=== PATIENT | female | born 2000 | race Caucasian/White ===

== ENCOUNTER 2022-01-20 08:18 | Inpatient (IN) ==
[2022-01-20] MEDS: LACTATED RINGER'S 1,000 ML IV PRN ×4 (08:50→20:21)
[2022-01-20] MEDS ORDERED: VANCOMYCIN HCL 1,000 MG in SODIUM CHLORIDE 0.9% 250 ML IV STA (08:56)
[2022-01-20] MEDS ORDERED: OXYTOCIN 30 UNITS/500 ML BAG IV PRN (08:56)
--- NOTE | 2022-01-20 09:09 | History & Physical Report ---
Date of Service January 20, 2022 Assessment & Plan (1) Normal labor: Plan: Admit, monitoring, GBS positive and PCN anaphylaxis with Erythromycin resistant GBS so will administer Vanco, start now due to FSE already placed. (2) Non-reassuring cardiotocographic tracing: Plan: Close monitoring; has resolved at this time. History of Present Illness Chief Complaint: Patient presents to L&D with c/o painful contractions. 21yo @ 39w6d. Immediately upon arrival to L&D was found to have FHT with decel to 60. Rapidly assessed by nearest MD (Sriram) and found to be 4cm dilated, FSE placed with concurrent pinpoint rupture of membranes, and [place] externally continued. IV access rapidly established and LR bolus ordered. Primary Care Provider: Magaly Torres Allergies Allergy/AdvReac Type Severity Reaction Status Date / Time amoxicillin Allergy Severe Anaphylaxis Verified 01/18/22 01:09 Penicillins Allergy Severe Anaphylaxis Verified 01/18/22 01:09 Home Medications Medication Instructions Recorded Confirmed Type ferrous sulfate 325 mg (65 mg 325 mg PO DAILY 01/18/22 01/20/22 History iron) tablet (Iron (ferrous sulfate)) Past Med/Surg History Medical History Anxiety Bipolar 1 disorder Depression Exercise-induced asthma PTSD (post-traumatic stress disorder) Varicella vaccine Surgical History No significant past surgical history Family History Grandmother (Paternal) Diabetes Myocardial infarction Grandfather (Maternal) Stroke Grandfather (Paternal) Myocardial infarction Aunt Ovarian cancer Cervical cancer Stomach cancer Mother Endometriosis H/O: hysterectomy Other Uterine cancer Denies family history of Breast cancer Social History Smoking Status: Current every day smoker Cigarettes Per Day: 6; Hx Alcohol Use: No Hx Substance Use: No Preferred Language: Kosovan Communication Ability: Effective Cigarette Tipper Required: No Beliefs That Will Affect Care: None marital status: Single marital status details: KAITLYNN Gabino Tonny (23) [phone] Current Living Situation: Family and Significant Other Current Living Situation Comment: lives with mother currently. 4 dogs. current occupational status: unemployed Feels Safe at Home: Yes Assistive Devices: None Review of Systems Review of Systems: All systems reviewed & are unremarkable except as noted in HPI & below Physical Exam Constitutional: WD/WN, vitals as above + in distress Eyes: PERRL, conjunctivae normal, anicteric sclerae ENMT: external ear and nose normal, oropharynx normal Neck: supple Respiratory: normal respiratory effort and able to speak in complete sentences; no respiratory distress Cardiovascular: Rate/Rhythm: regular rate and regular rhythm Extremities: + pedal edema Gastrointestinal (Abdomen): Gravid / AGA, nontender Musculoskeletal: no cyanosis or clubbing, extremities motor strength 5/5 Skin: no rashes, warm and dry Psychiatric: A+Ox3, euthymic affect Genitourinary: Speculum/Bimanual Exam: no vaginal lesions, no vaginal bleeding and uterus nontender OB Exam Abdomen: + vertex, + estimated weight (7) and + regular contractions (Q3) Manual OB Exam: + cervical dilation, + cervical effacement, + station and + amniotic fluid (No leaking evident) OB Exam Monitor Tracing: + external FHT monitor used, + external uterine monitor used and + category I Exam by Dr. Bhatia reported to this MD at the bedside, 4cm. Patient's membranes were intact but FSE placed to allow tracing accurately due to suspected 60bpm deceleration immediately upon arrival. Decel confirmed and FHT promptly recovered to a 150 baseline, mod anel, no accels no decels. [place] poorly traced, possible Q1-2m LAW vs ctx. Not much strip accrued yet as patient newly admitted. Lymphatic: no cervical or axillary lymphadenopathy Results & Data Results & Data ([facility]) Vital Signs (Past 12 Hours) Vital Signs Pulse Pulse Ox 01/20/22 09:01 127 H 100 PG Care Time/CCT Total # of Minutes Spent Total Time Spent with Patient: Total time spent is greater than 50% in coordination of care (as documented) at patient's floor/unit and/or counseling patient: Coding Level of Care Code None Diagnoses Normal labor O80; Z37.9 Non-reassuring cardiotocographic tracing O36.8390
[2022-01-20 09:25] LABS: Hematocrit (blood only) 31.4 % (34.1-44.9); Hemoglobin 10.6 g/dl (12.0-16.0); Mean Corpuscular Hemoglobin 31.5 pg (25.0-34.0); Mean Corpuscular Hgb Conc 33.8 g/dL (32.0-36.0); Mean Corpuscular Volume 93.2 fL (80.0-100.0); Mean Platelet Volume 9.8 fL (9.4-12.3); Platelet Count 357 K/uL (130-400); RDW Coefficient of Variation 12.7 % (11.5-14.5); RDW Standard Deviation 43.3 fL (36.4-46.3); Red Blood Count 3.37 M/uL (3.93-5.22); White Blood Count 16.05 K/ul (4.8-10.8)
[2022-01-20] MEDS ORDERED: VANCOMYCIN HCL 1,750 MG in SODIUM CHLORIDE 0.9% 500 ML IV STA (09:27)
[2022-01-20] MEDS ORDERED: ePHEDrine sulfate 50 MG/ML AMP ONE (11:04)
[2022-01-20] MEDS ORDERED: BUPIVACAINE 0.25% 30 ML VIAL ONE (11:05)
[2022-01-20] MEDS ORDERED: LIDOCAINE 2%/EPINEPHRINE 1:200,000 20 ML SDV ONE (11:05)
[2022-01-20] MEDS ORDERED: fentaNYL citrate 100 MCG/2 ML VIAL ONE (11:05)
[2022-01-20] MEDS ORDERED: SODIUM CHLORIDE 0.9% INJ 10 ML VIAL ONE (11:05)
[2022-01-20] MEDS ORDERED: fentaNYL 2MCG/ML ROPIVACAINE 1.25MG/ML 100 ML BAG EPI ONE (11:06)
[2022-01-20] MEDS ORDERED: fentaNYL 2MCG/ML ROPIVACAINE 1.25MG/ML 100 ML BAG EPI PRN (11:18)
[2022-01-20] MEDS ORDERED: NALOXONE HCL 0.4 MG/1 ML VIAL/CARP IV PRN (11:18)
[2022-01-20] MEDS ORDERED: diphenhydrAMINE 50 MG/ML VIAL IV PRN (11:18)
[2022-01-20] MEDS ORDERED: NALBUPHINE HCL INJ 10 MG/ML AMP IV PRN (11:18)
[2022-01-20] MEDS ORDERED: NALOXONE HCL 1 MG in SODIUM CHLORIDE 0.9% 1000ML 1,000 ML IV PRN (11:18)
[2022-01-20] MEDS ORDERED: ePHEDrine sulfate 50 MG/ML AMP IV PRN (11:18)
--- NOTE | 2022-01-20 11:24 | Anesthesiology Consultation ---
Date of Service January 20, 2022 Assessment & Plan (1) Encounter for pre-operative examination: Chart Review Chart Review: Acceptable Risk for Labor Epidural Consults Requested none ASA ASA2 Proposed Anesthesia Anesthesia Type: Labor Epidural Risk / Benefits Reviewed With: PT / POA / Parent / Guardian, Accepts Plan and Informed Consent Obtained History Height/Weight Height: 5 ft 6.5 in Weight: 92.079 kg Allergies Allergy/AdvReac Type Severity Reaction Status Date / Time amoxicillin Allergy Severe Anaphylaxis Verified 01/18/22 01:09 Penicillins Allergy Severe Anaphylaxis Verified 01/18/22 01:09 Medications Home Medications Medication Instructions Recorded Confirmed Last Taken ferrous sulfate 325 mg (65 mg 325 mg PO DAILY 01/18/22 01/20/22 01/06/22 iron) tablet (Iron (ferrous sulfate)) Active Medications Generic Name Dose Route Start Last Admin Trade Name Freq PRN Reason Stop Dose Admin Lactated Ringer's 1,000 mls @ 125 mls/hr 01/20/22 08:56 01/20/22 09:20 Lr IV 01/22/22 08:55 125 mls/hr .Q8H PRN Infusion L&D Protocol Protocol Vancomycin HCl 1,750 mg/ 535 mls @ 200 mls/hr 01/20/22 09:27 01/20/22 10:11 Sodium Chloride IV 01/20/22 12:07 200 mls/hr NOW STA Administration Past Medical History Medical History Anxiety Bipolar 1 disorder Depression Exercise-induced asthma PTSD (post-traumatic stress disorder) Varicella vaccine Exercise / Class Metabolic Activity II 4-5 Yardwork/Stairs/Walk up hill Past Family History Family History Grandmother (Paternal) Diabetes Myocardial infarction Grandfather (Maternal) Stroke Grandfather (Paternal) Myocardial infarction Aunt Ovarian cancer Cervical cancer Stomach cancer Mother Endometriosis H/O: hysterectomy Other Uterine cancer Denies family history of Breast cancer Past Surgical History Surgical History No significant past surgical history Past Anesthesia History No Hx of Anesthesia Complications and No Family Hx of Anesthesia Complications History of PONV No Hx of PONV and No Hx of Motion Sickness Social History Smoking Status: Current every day smoker tobacco type: cigarettes Smoking cigarettes per day: 6 Do You Dip or Chew Tobacco: No Hx Alcohol Use: No Hx Substance Use: No substance use type: does not use Physical Exam Vital Signs Last Vital Signs Pulse 90 01/20/22 11:20 BP 113/62 01/20/22 11:14 Pulse Ox 96 01/20/22 11:20 ENMT Mouth: no dentition abnormality Thyromental Distance: > or= 3.5 Finger Breadths Mallampati Class: II Neck normal visual inspection Respiratory normal respiratory effort Auscultation: lungs clear to auscultation bilaterally Cardiovascular Rate/Rhythm: regular rate and regular rhythm Testing Laboratory Results 01/20/22 09:09
[2022-01-20] MEDS: ONDANSETRON INJ 2 MG/ML 2 ML VIAL IV PRN ×2 (12:34→22:07)
[2022-01-20] MEDS ORDERED: VANCOMYCIN HCL 1,000 MG in SODIUM CHLORIDE 0.9% 250 ML IV PRN (22:00)
[2022-01-21] MEDS ORDERED: LIDOCAINE 2%/EPINEPHRINE 1:200,000 20 ML SDV ONE ×3 (00:19)
[2022-01-21] MEDS ORDERED: GENTAMICIN CONSULT ACTIVE PRN (00:19)
[2022-01-21] MEDS ORDERED: LACTATED RINGER'S 1,000 ML IV SCH (00:30)
--- NOTE | 2022-01-21 00:35 | Labor Progress Brief Note ---
Date of Service January 21, 2022 Subjective Comfortable with epidural, though feeling pressure and urge with some c ontractions now. Assessment & Plan Admission and Anticipated Discharge Date Admission Date: January 20, 2022 Physical Exam Genitourinary: FHT all day have been alternating between intervals of Cat 1, and more often being Cat 2, with normal baseline, mod anel, accels, and variables with contractions. At times the variables have been deep, to as low as 50, but always spontaneously recover to a normal baseline with good variability between contractions. This has been discussed with patient, FOB and nursing staff through the day. At no point has the tracing been without reassuring variability, and labor has progressed spontaneously, so has been allowed to continue with close monitoring and without augmentation. Currently: 130 mod anel +acc +variable decel with each contraction, Q3min, barbara ranging from 50-100bpm. Cervix anterior lip/100/+1 Fluid is clear. With contraction, patient is asked to test push. She brings the head down, and I'm able to reduce the anterior lip. Once reduced, however, it is possible to palpate further along the head and discern that she is presenting in LOT, with an ear palpable anteriorly. Between pushes the cervical lip falls back down. With the second test push, a large loop of cord is palpable presenting over the ear; the examiner's hand prevents it coming forward any further. The patient is instructed to stop pushing and the cord is easily replaced inside the uterus, superior to the ear. A discussion is held at the bedside. I feel it's likely this occult cord is the reason for her deep variable decels, and that attempting a second stage of labor will only result in complete cord prolapse with low chance of a safe and successful vaginal delivery. The patient accepted this and said she is comfortable with the recommendation to proceed to section. We will move to the OR as quickly as is possible, with the understanding that concurrent events on labor and delivery are also playing a role in our timing. monitoring will be continuous until she can be safely conveyed to the OR for delivery. At this time consent process has been completed at the bedside, the patient is resting, and heart tones are now 145, mod anel, +acc, and the last contraction showed only a modest decel to barbara 110 lasting barely 15sec. Results & Data ([facility]) Vital Signs (Past 12 Hours) Vital Signs Temp Pulse Resp BP Pulse Ox 01/21/22 00:18 102 H 98 01/21/22 00:15 105 H 91 01/21/22 00:13 83 97 01/21/22 00:10 94 H 127/80 01/21/22 00:08 94 H 97 01/21/22 00:03 85 97 01/20/22 23:58 90 98 01/20/22 23:53 80 98 01/20/22 23:54 81 123/69 01/20/22 23:48 77 98 01/20/22 23:43 78 98 01/20/22 23:41 85 132/76 01/20/22 23:38 94 H 99 01/20/22 23:39 96 H 92 01/20/22 23:33 74 92 01/20/22 23:28 70 90 01/20/22 23:25 82 119/63 01/20/22 23:23 80 93 01/20/22 23:24 67 94 01/20/22 23:18 80 92 01/20/22 23:15 100 H 92 01/20/22 23:13 102 H 90 01/20/22 23:09 81 119/71 93 01/20/22 23:08 75 97 01/20/22 23:03 78 97 01/20/22 23:00 98.1 F 01/20/22 22:58 91 H 97 01/20/22 22:53 119 H 98 01/20/22 22:54 122 H 20 140/87 01/20/22 22:48 95 01/20/22 22:48 71 01/20/22 22:48 66 94 01/20/22 22:43 67 93 01/20/22 22:42 65 94 01/20/22 22:40 63 102/57 L 01/20/22 22:38 70 95 01/20/22 22:37 64 94 01/20/22 22:33 63 94 01/20/22 22:31 73 93 01/20/22 22:28 66 94 01/20/22 22:26 62 94 01/20/22 22:25 71 105/53 L 01/20/22 22:23 74 97 01/20/22 22:20 91 H 91 01/20/22 22:18 71 97 01/20/22 22:13 74 98 01/20/22 22:09 71 112/61 94 01/20/22 22:08 66 97 01/20/22 22:03 87 97 01/20/22 22:04 77 108/59 L 01/20/22 21:58 75 97 01/20/22 21:54 63 110/57 L 01/20/22 21:53 70 97 01/20/22 21:48 82 98 01/20/22 21:44 84 92 01/20/22 21:43 71 96 01/20/22 21:39 69 108/63 94 01/20/22 21:38 79 97 01/20/22 21:33 90 97 01/20/22 21:28 98 H 99 01/20/22 21:26 88 121/75 01/20/22 21:25 90 93 01/20/22 21:23 88 98 01/20/22 21:18 80 92 01/20/22 21:17 97 H 94 01/20/22 21:13 89 97 01/20/22 21:09 93 H 123/72 01/20/22 21:08 98.6 F 88 18 97 01/20/22 21:03 78 94 01/20/22 21:02 87 94 01/20/22 20:58 83 99 01/20/22 20:53 71 100 01/20/22 20:54 81 131/66 01/20/22 20:48 91 H 97 01/20/22 20:43 79 98 01/20/22 20:39 83 119/65 01/20/22 20:38 79 97 01/20/22 20:33 81 94 01/20/22 20:31 73 94 01/20/22 20:28 83 91 01/20/22 20:26 71 90 01/20/22 20:23 88 99 01/20/22 20:24 86 111/62 01/20/22 20:18 70 98 01/20/22 20:17 97 H 93 01/20/22 20:13 95 H 98 01/20/22 20:09 101 H 125/68 01/20/22 20:08 88 99 01/20/22 20:03 86 99 01/20/22 19:58 71 99 01/20/22 19:53 76 98 01/20/22 19:54 64 125/75 90 01/20/22 19:48 69 98 01/20/22 19:43 71 98 01/20/22 19:40 75 119/76 01/20/22 19:38 98 01/20/22 19:38 73 01/20/22 19:38 71 94 01/20/22 19:33 83 99 01/20/22 19:28 74 99 01/20/22 19:23 63 98 01/20/22 19:24 64 99/51 L 01/20/22 19:18 88 98 01/20/22 19:13 68 98 01/20/22 19:09 62 106/55 L 01/20/22 19:08 98.4 F 73 18 99 01/20/22 19:05 73 91 01/20/22 19:03 64 100 01/20/22 18:58 89 L 01/20/22 18:58 76 01/20/22 18:58 77 93 01/20/22 18:55 87 114/68 01/20/22 18:53 68 99 01/20/22 18:50 74 93 01/20/22 18:48 86 97 01/20/22 18:43 69 99 01/20/22 18:40 101 H 93 01/20/22 18:39 98 H 116/66 01/20/22 18:38 79 98 01/20/22 18:33 83 98 01/20/22 18:28 87 98 01/20/22 18:23 75 98 01/20/22 18:24 83 118/76 90 01/20/22 18:18 74 97 01/20/22 18:13 76 99 01/20/22 18:08 75 98 01/20/22 18:09 69 106/60 01/20/22 18:03 69 98 01/20/22 17:58 73 100 01/20/22 17:53 76 98 01/20/22 17:54 99.1 F 81 18 116/65 97 01/20/22 17:48 80 96 01/20/22 17:43 68 95 01/20/22 17:38 67 97 01/20/22 17:39 66 110/61 01/20/22 17:33 74 98 01/20/22 17:28 72 99 01/20/22 17:23 69 98 07/13/22 17:24 68 109/56 L 01/20/22 17:18 69 96 01/20/22 17:13 69 99 01/20/22 17:10 63 109/56 L 01/20/22 17:08 71 98 01/20/22 17:03 68 99 01/20/22 16:58 65 95 01/20/22 16:55 94 H 93 01/20/22 16:54 64 106/57 L 01/20/22 16:53 68 96 01/20/22 16:48 72 96 01/20/22 16:43 66 97 01/20/22 16:38 78 97 01/20/22 16:39 69 110/59 L 01/20/22 16:33 71 97 01/20/22 16:28 66 99 01/20/22 16:24 81 100/57 L 93 01/20/22 16:23 88 97 01/20/22 16:18 89 98 01/20/22 16:13 62 96 01/20/22 16:11 82 93 01/20/22 16:08 73 96 01/20/22 16:05 76 108/71 01/20/22 16:03 113 H 99 01/20/22 16:02 68 93 01/20/22 16:00 87 107/71 01/20/22 15:58 98 H 96 01/20/22 15:55 96 H 104/62 01/20/22 15:53 91 H 97 01/20/22 15:51 58 L 111/73 93 01/20/22 15:48 72 93 01/20/22 15:46 86 119/72 01/20/22 15:43 81 96 01/20/22 15:44 68 94 01/20/22 15:41 74 113/62 01/20/22 15:38 74 97 01/20/22 15:36 80 122/76 01/20/22 15:33 63 96 01/20/22 15:30 77 113/64 01/20/22 15:28 70 95 01/20/22 15:25 98.4 F 100 H 18 106/69 01/20/22 15:23 70 94 01/20/22 15:22 66 115/63 94 01/20/22 15:18 111 H 94 01/20/22 15:17 77 94 01/20/22 15:16 74 109/60 07/13/22 15:13 64 95 01/20/22 15:12 67 94 01/20/22 15:11 78 115/60 01/20/22 15:08 76 94 01/20/22 15:07 68 94 01/20/22 15:05 64 114/59 L 01/20/22 15:03 83 96 01/20/22 15:02 80 93 01/20/22 15:00 81 114/59 L 01/20/22 14:58 63 95 01/20/22 14:56 73 01/20/22 14:56 67 122/64 94 01/20/22 14:53 72 95 01/20/22 14:51 68 115/60 01/20/22 14:49 68 91 01/20/22 14:21 98 01/20/22 14:21 80 01/20/22 14:48 69 98 01/20/22 14:21 127/67 01/20/22 14:45 80 114/69 01/20/22 14:43 73 96 01/20/22 14:40 76 115/72 01/20/22 14:38 72 97 01/20/22 14:36 83 113/74 01/20/22 14:33 71 96 01/20/22 14:32 79 127/67 90 01/20/22 14:28 83 99 01/20/22 14:25 80 116/73 93 01/20/22 14:23 75 97 01/20/22 14:21 98.4 F 76 18 113/64 01/20/22 14:18 69 99 01/20/22 14:15 80 114/69 01/20/22 14:13 76 97 01/20/22 14:11 68 113/67 89 L 01/20/22 14:08 70 98 01/20/22 14:05 65 111/69 01/20/22 14:03 71 99 01/20/22 14:01 85 120/72 01/20/22 13:58 80 98 01/20/22 13:57 84 92 01/20/22 13:55 79 109/61 01/20/22 13:53 78 98 01/20/22 13:51 73 109/57 L 01/20/22 13:49 74 91 01/20/22 13:48 74 96 01/20/22 13:45 91 H 123/71 01/20/22 13:43 90 95 01/20/22 13:41 71 94 01/20/22 13:40 75 115/58 L 01/20/22 13:38 63 95 01/20/22 13:36 63 114/58 L 01/20/22 13:33 63 97 01/20/22 13:30 63 115/56 L 01/20/22 13:28 69 99 01/20/22 13:26 67 92 01/20/22 13:25 61 118/56 L 01/20/22 13:23 83 96 01/20/22 13:20 62 120/57 L 93 01/20/22 13:18 76 97 01/20/22 13:15 63 109/66 01/20/22 13:13 63 96 01/20/22 13:10 61 109/65 01/20/22 13:08 73 80 L 01/20/22 13:05 94 01/20/22 13:05 72 01/20/22 13:05 72 108/62 01/20/22 13:03 90 99 01/20/22 13:00 94 01/20/22 13:00 67 01/20/22 13:00 63 105/58 L 01/20/22 12:56 69 97 01/20/22 12:55 63 99/60 L 01/20/22 12:54 64 93 01/20/22 12:51 77 96 01/20/22 12:50 113 H 87/52 L 01/20/22 12:48 66 93 01/20/22 12:46 65 96 01/20/22 12:45 61 92/49 L 01/20/22 12:41 64 97 01/20/22 12:40 65 99/53 L 01/20/22 12:36 98 01/20/22 12:36 90 01/20/22 12:37 82 92 01/20/22 12:36 89 107/55 L 01/20/22 12:32 102 H 90 01/20/22 12:30 112 H 97 01/20/22 12:31 97 H 109/75 01/20/22 12:25 109 H 96 01/20/22 12:26 91 H 132/63 Coding Level of Care Code None
[2022-01-21] MEDS ORDERED: CITRIC ACID/SODIUM CITRATE 15 ML UDC ONE (00:37)
[2022-01-21] MEDS ORDERED: OXYTOCIN 10 UNITS/ML 10ML VIAL ONE (01:09)
[2022-01-21] MEDS ORDERED: MoRPHine SULFATE PF 1 MG/ML 10 ML AMP/VIAL ONE (01:09)
[2022-01-21] MEDS ORDERED: MIDAZOLAM HCL 1 MG/ML 2ML VIAL ONE (01:18)
[2022-01-21] MEDS ORDERED: ONDANSETRON INJ 2 MG/ML 2 ML VIAL ONE (01:20)
[2022-01-21] MEDS ORDERED: NALOXONE HCL 0.08 MG in SYRINGE 1.8 ML IV PRN (01:23)
[2022-01-21] MEDS ORDERED: MoRPHine SULFATE PF 1 MG/ML 10 ML AMP/VIAL INT SPINAL ONE (01:23)
[2022-01-21] MEDS ORDERED: NALOXONE HCL 0.4 MG/1 ML VIAL/CARP IV PRN (01:23)
[2022-01-21] MEDS ORDERED: ONDANSETRON INJ 2 MG/ML 2 ML VIAL IV PRN ×2 (01:23→19:25)
[2022-01-21] MEDS ORDERED: NALOXONE HCL 1 MG in SODIUM CHLORIDE 0.9% 1000ML 1,000 ML IV PRN (01:23)
[2022-01-21] MEDS ORDERED: NALBUPHINE HCL INJ 10 MG/ML AMP IV PRN (01:23)
[2022-01-21] MEDS ORDERED: diphenhydrAMINE 50 MG/ML VIAL IV PRN ×2 (01:23→19:25)
[2022-01-21] MEDS ORDERED: LACTATED RINGER'S 500 ML IV PRN (01:23)
[2022-01-21] MEDS ORDERED: ePHEDrine sulfate 50 MG/ML AMP IV PRN (01:23)
[2022-01-21] MEDS ORDERED: SODIUM CHLORIDE 0.9% 1000ML 1,000 ML IV SCH (01:30)
[2022-01-21] MEDS ORDERED: DC INTRASPINAL MORPHINE SCH (01:30)
[2022-01-21] MEDS ORDERED: KETOROLAC 30 MG/ML VIAL ONE (01:41)
--- NOTE | 2022-01-21 02:00 | Operative Report ---
PG Post Operative Report Pre & Post Diagnosis Operation Date: 01/21/22 00:50 Pre-Op Diagnosis: 1. SIUP @ 40w0d 2. Spontaneous Onset of Labor 3. Group B Strep positive, s/p 2 doses Vancomycin 4. Nonreassuring heart tones 5. Occult cord prolapse 6. LOT Presentation Post-Op Diagnosis: Same, plus 7. Left cervical extension I identified the patient and participated in the time-out.: Yes Procedure Operation Date: 01/21/22 00:50 Actual Procedures Primary Low Transverse Section with significant Left Cervical Extension and Repair. Surgeon Renita Maldonado MD Graphic Specialist Maria E, [employer]; Dr. Coty Rasmussen [place] [facility] [place] [facility] Estimated Blood Loss 700 Findings Consistent with Post-Op Diagnosis Specimens Cord gas, Cord blood, Placenta Anesthesia Type L&D Only Epidural Exists Complications none Disposition Accompanied Patient To Recovery: Yes Disposition: L&D Description of Procedure The patient was placed operating table in the supine position with a leftward tilt. She was prepped and draped in standard sterile fashion. The anesthetic was tested and found to be adequate. A time-out was held, identifying correct patient, procedure, positioning and preoperative antibiotics. There were no co ncerns. A Pfannenstiel skin incision was made with a knife and taken down to the underlying layer of fascia. The fascia was incised in the midline with the knife and taken out laterally with scissors. The superior edge of the fascial incision was grasped, elevated and dissected off the underlying rectus both superiorly and inferiorly. The muscles were bluntly in the midline. The peritoneum was entered bluntly. The incision was then stretched. The bladder retractor was placed. The vesicouterine peritoneum was identified, entered with scissors and taken out laterally with scissors. The bladder flap was created digitally. A hysterotomy incision was created transversely in the lower uterine segment, final entry being accomplished in a blunt manner with the steel shot header operator's fingers. Clear amniotic fluid was encountered along with a pile of umbilical cord which promptly presented through the incision. The steel shot header operator's hand was used to elevate the head to the hysterotomy. Using the right hand initially I was unable to elevate the head; I then introduced my left hand instead, and was able to elevate the head successfully with this slightly different angle. Two loops of nuchal cord were present. The head was delivered using mild fundal pressure, and the shoulders and body followed, delivering through the loops. The cord was clamped and cut and the infant was then handed off to the awaiting channeling machine runner. Cord blood was obtained. The placenta was Manually extracted. The uterus was exteriorized and cleared of all clot and debris with moistened laparotomy sponges. The hysterotomy incision was examined and found to have a significant extension from the left angle down to almost the very bottom of the cervix. The angles and edges were identified with clamps. The extension was first repaired in a single layer, then the hysterotomy was repaired in a single layer. Dr. Rasmussen scrubbed to assist in visualizing the apex of the extension. At this time in the procedure, the patient was experiencing anxiety and subjective shortness of breath. Her symptoms were being managed in part by the anesthesiologist positioning her in reverse-Trendelenberg, which was successful in calming the patient, but contributed to the need for additional hands to retract the tissue and aid in access to the surgical site. With both a avionics systems technician and Dr. Rasmussen aiding in tissue retraction and clearing run-down, I was able to re-assess the apex of the extension and place a second layer that achieved complete hemostasis. The hysterotomy itself was then also provided with an imbricating layer. The vesicouterine space overlying the extension was observed to ensure no bleeding was present, and Carlos was applied throughout that space as well. The ovaries and tubes were seen to be normal bilaterally, and the posterior gutter was examined and cleared of clot and debris. The uterus was gently replaced in the abdomen, and the lateral gutters were cleared of clot and debris. A final inspection of the hysterotomy revealed good hemostasis and the uterus was well- contracted. The rectus muscles were allowed to reapproximate naturally. The fascia was then reapproximated with 1 Vicryl in a running nonlocked manner. The fascia was examined and found to be free of defect following closure. The subcutaneous tissue was copiously irrigated and reapproximated with vicryl, then the skin edges were closed with 4-0 monocryl in a subcuticular fashion. A dermabond dressing was applied. The le was found to be draining clear yellow urine at completion of the procedure. The patient and FOB were counseled in the operating suite before transfer to recovery on the events including her significant hysterotomy extension, which I feel was large enough that she should not be considered a candidate with future pregnancies. They were advised that future babies should be delivered via and expressed understanding. Questions were elicited and answered to their stated satisfaction. I attest to the content of the Intraoperative Record and any orders documented therein. Any exceptions are noted below. I attest to the content of the Intraoperative Record and any orders documented therein. Any exceptions are noted below. OB Procedure Charges 77702
--- NOTE | 2022-01-21 02:03 | Anesthesiology Progress Note ---
Date of Service January 21, 2022 Anesthesia Post Procedure Vital Signs Vital Signs: Temp Pulse Resp BP Pulse Ox 01/21/22 02:00 88 125/76 01/21/22 01:57 89 100 01/21/22 00:50 116 H 100 01/21/22 00:45 109 H 98 01/21/22 00:40 96 H 100 01/21/22 00:39 92 H 127/81 01/21/22 00:25 88 124/57 L 01/21/22 00:18 102 H 98 01/21/22 00:15 105 H 91 01/21/22 00:13 83 97 01/21/22 00:10 94 H 127/80 01/21/22 00:08 94 H 97 01/21/22 00:03 85 97 01/20/22 23:58 90 98 01/20/22 23:53 80 98 01/20/22 23:54 81 123/69 01/20/22 23:48 77 98 01/20/22 23:43 78 98 01/20/22 23:41 85 132/76 01/20/22 23:38 94 H 99 01/20/22 23:39 96 H 92 01/20/22 23:33 74 92 01/20/22 23:28 70 90 01/20/22 23:25 82 119/63 01/20/22 23:23 80 93 01/20/22 23:24 67 94 01/20/22 23:18 80 92 01/20/22 23:15 100 H 92 01/20/22 23:13 102 H 90 01/20/22 23:09 81 119/71 93 01/20/22 23:08 75 97 01/20/22 23:03 78 97 01/20/22 23:00 98.1 F 01/20/22 22:58 91 H 97 01/20/22 22:53 119 H 98 01/20/22 22:54 122 H 20 140/87 01/20/22 22:48 95 01/20/22 22:48 71 01/20/22 22:48 66 94 01/20/22 22:43 67 93 01/20/22 22:42 65 94 01/20/22 22:40 63 102/57 L 01/20/22 22:38 70 95 01/20/22 22:37 64 94 01/20/22 22:33 63 94 01/20/22 22:31 73 93 01/20/22 22:28 66 94 01/20/22 22:26 62 94 01/20/22 22:25 71 105/53 L 01/20/22 22:23 74 97 01/20/22 22:20 91 H 91 01/20/22 22:18 71 97 01/20/22 22:13 74 98 01/20/22 22:09 71 112/61 94 01/20/22 22:08 66 97 01/20/22 22:03 87 97 01/20/22 22:04 77 108/59 L 01/20/22 21:58 75 97 01/20/22 21:54 63 110/57 L 01/20/22 21:53 70 97 01/20/22 21:48 82 98 01/20/22 21:44 84 92 01/20/22 21:43 71 96 01/20/22 21:39 69 108/63 94 01/20/22 21:38 79 97 01/20/22 21:33 90 97 01/20/22 21:28 98 H 99 01/20/22 21:26 88 121/75 01/20/22 21:25 90 93 01/20/22 21:23 88 98 01/20/22 21:18 80 92 01/20/22 21:17 97 H 94 01/20/22 21:13 89 97 01/20/22 21:09 93 H 123/72 01/20/22 21:08 98.6 F 88 18 97 01/20/22 21:03 78 94 01/20/22 21:02 87 94 01/20/22 20:58 83 99 01/20/22 20:53 71 100 01/20/22 20:54 81 131/66 01/20/22 20:48 91 H 97 01/20/22 20:43 79 98 01/20/22 20:39 83 119/65 01/20/22 20:38 79 97 01/20/22 20:33 81 94 01/20/22 20:31 73 94 01/20/22 20:28 83 91 01/20/22 20:26 71 90 01/20/22 20:23 88 99 01/20/22 20:24 86 111/62 01/20/22 20:18 70 98 01/20/22 20:17 97 H 93 01/20/22 20:13 95 H 98 01/20/22 20:09 101 H 125/68 01/20/22 20:08 88 99 01/20/22 20:03 86 99 01/20/22 19:58 71 99 01/20/22 19:53 76 98 01/20/22 19:54 64 125/75 90 01/20/22 19:48 69 98 01/20/22 19:43 71 98 01/20/22 19:40 75 119/76 01/20/22 19:38 98 01/20/22 19:38 73 01/20/22 19:38 71 94 01/20/22 19:33 83 99 01/20/22 19:28 74 99 01/20/22 19:23 63 98 01/20/22 19:24 64 99/51 L 01/20/22 19:18 88 98 01/20/22 19:13 68 98 01/20/22 19:09 62 106/55 L 01/20/22 19:08 98.4 F 73 18 99 01/20/22 19:05 73 91 01/20/22 19:03 64 100 01/20/22 18:58 89 L 01/20/22 18:58 76 01/20/22 18:58 77 93 01/20/22 18:55 87 114/68 01/20/22 18:53 68 99 01/20/22 18:50 74 93 01/20/22 18:48 86 97 01/20/22 18:43 69 99 01/20/22 18:40 101 H 93 01/20/22 18:39 98 H 116/66 01/20/22 18:38 79 98 01/20/22 18:33 83 98 01/20/22 18:28 87 98 01/20/22 18:23 75 98 01/20/22 18:24 83 118/76 90 01/20/22 18:18 74 97 01/20/22 18:13 76 99 01/20/22 18:08 75 98 01/20/22 18:09 69 106/60 01/20/22 18:03 69 98 01/20/22 17:58 73 100 01/20/22 17:53 76 98 01/20/22 17:54 99.1 F 81 18 116/65 97 01/20/22 17:48 80 96 01/20/22 17:43 68 95 01/20/22 17:38 67 97 01/20/22 17:39 66 110/61 01/20/22 17:33 74 98 01/20/22 17:28 72 99 01/20/22 17:23 69 98 01/20/22 17:24 68 109/56 L 01/20/22 17:18 69 96 01/20/22 17:13 69 99 01/20/22 17:10 63 109/56 L 01/20/22 17:08 71 98 01/20/22 17:03 68 99 01/20/22 16:58 65 95 01/20/22 16:55 94 H 93 01/20/22 16:54 64 106/57 L 01/20/22 16:53 68 96 01/20/22 16:48 72 96 01/20/22 16:43 66 97 01/20/22 16:38 78 97 01/20/22 16:39 69 110/59 L 01/20/22 16:33 71 97 01/20/22 16:28 66 99 01/20/22 16:24 81 100/57 L 93 01/20/22 16:23 88 97 01/20/22 16:18 89 98 01/20/22 16:13 62 96 01/20/22 16:11 82 93 01/20/22 16:08 73 96 01/20/22 16:05 76 108/71 01/20/22 16:03 113 H 99 01/20/22 16:02 68 93 01/20/22 16:00 87 107/71 01/20/22 15:58 98 H 96 01/20/22 15:55 96 H 104/62 01/20/22 15:53 91 H 97 01/20/22 15:51 58 L 111/73 93 01/20/22 15:48 72 93 01/20/22 15:46 86 119/72 01/20/22 15:43 81 96 01/20/22 15:44 68 94 01/20/22 15:41 74 113/62 01/20/22 15:38 74 97 01/20/22 15:36 80 122/76 01/20/22 15:33 63 96 01/20/22 15:30 77 113/64 01/20/22 15:28 70 95 01/20/22 15:25 98.4 F 100 H 18 106/69 01/20/22 15:23 70 94 01/20/22 15:22 66 115/63 94 01/20/22 15:18 111 H 94 01/20/22 15:17 77 94 01/20/22 15:16 74 109/60 01/20/22 15:13 64 95 01/20/22 15:12 67 94 01/20/22 15:11 78 115/60 01/20/22 15:08 76 94 01/20/22 15:07 68 94 01/20/22 15:05 64 114/59 L 01/20/22 15:03 83 96 01/20/22 15:02 80 93 01/20/22 15:00 81 114/59 L 01/20/22 14:58 63 95 01/20/22 14:56 73 01/20/22 14:56 67 122/64 94 01/20/22 14:53 72 95 01/20/22 14:51 68 115/60 01/20/22 14:49 68 91 01/20/22 14:21 98 01/20/22 14:21 80 01/20/22 14:48 69 98 01/20/22 14:21 127/67 01/20/22 14:45 80 114/69 01/20/22 14:43 73 96 01/20/22 14:40 76 115/72 01/20/22 14:38 72 97 01/20/22 14:36 83 113/74 01/20/22 14:33 71 96 01/20/22 14:32 79 127/67 90 01/20/22 14:28 83 99 01/20/22 14:25 80 116/73 93 01/20/22 14:23 75 97 01/20/22 14:21 98.4 F 76 18 113/64 01/20/22 14:18 69 99 01/20/22 14:15 80 114/69 01/20/22 14:13 76 97 01/20/22 14:11 68 113/67 89 L 01/20/22 14:08 70 98 01/20/22 14:05 65 111/69 01/20/22 14:03 71 99 01/20/22 14:01 85 120/72 01/20/22 13:58 80 98 01/20/22 13:57 84 92 01/20/22 13:55 79 109/61 01/20/22 13:53 78 98 01/20/22 13:51 73 109/57 L 01/20/22 13:49 74 91 01/20/22 13:48 74 96 01/20/22 13:45 91 H 123/71 01/20/22 13:43 90 95 01/20/22 13:41 71 94 01/20/22 13:40 75 115/58 L 01/20/22 13:38 63 95 01/20/22 13:36 63 114/58 L 01/20/22 13:33 63 97 01/20/22 13:30 63 115/56 L 01/20/22 13:28 69 99 01/20/22 13:26 67 92 01/20/22 13:25 61 118/56 L 01/20/22 13:23 83 96 01/20/22 13:20 62 120/57 L 93 01/20/22 13:18 76 97 01/20/22 13:15 63 109/66 01/20/22 13:13 63 96 01/20/22 13:10 61 109/65 01/20/22 13:08 73 80 L 01/20/22 13:05 94 01/20/22 13:05 72 01/20/22 13:05 72 108/62 01/20/22 13:03 90 99 01/20/22 13:00 94 01/20/22 13:00 67 01/20/22 13:00 63 105/58 L 01/20/22 12:56 69 97 01/20/22 12:55 63 99/60 L 01/20/22 12:54 64 93 01/20/22 12:51 77 96 01/20/22 12:50 113 H 87/52 L 01/20/22 12:48 66 93 01/20/22 12:46 65 96 01/20/22 12:45 61 92/49 L 01/20/22 12:41 64 97 01/20/22 12:40 65 99/53 L 01/20/22 12:36 98 01/20/22 12:36 90 01/20/22 12:37 82 92 01/20/22 12:36 89 107/55 L 01/20/22 12:32 102 H 90 01/20/22 12:30 112 H 97 01/20/22 12:31 97 H 109/75 01/20/22 12:25 109 H 96 01/20/22 12:26 91 H 132/63 01/20/22 12:20 81 120/62 98 01/20/22 12:17 97 H 94 01/20/22 12:15 82 112/64 98 01/20/22 12:10 71 113/65 98 01/20/22 12:05 98 01/20/22 12:05 87 01/20/22 12:05 83 114/66 01/20/22 12:00 77 95 01/20/22 12:01 87 113/87 93 01/20/22 11:56 79 01/20/22 11:55 81 95 01/20/22 11:56 75 113/62 94 01/20/22 11:50 99 01/20/22 11:50 97 H 01/20/22 11:50 83 113/56 L 01/20/22 11:47 83 114/68 01/20/22 11:45 98 H 96 01/20/22 11:46 101 H 110/59 L 01/20/22 11:44 82 112/57 L 01/20/22 11:41 82 134/68 01/20/22 11:40 120 H 92 01/20/22 11:39 77 88/53 L 01/20/22 11:38 76 98/57 L 01/20/22 11:37 78 94 01/20/22 11:35 78 129/59 L 95 01/20/22 11:30 138 H 95 01/20/22 11:29 172 H 91 01/20/22 11:25 107 H 92 01/20/22 11:24 99 H 94 01/20/22 11:20 90 96 01/20/22 11:19 101 H 93 01/20/22 11:15 109 H 98 01/20/22 11:14 98.4 F 101 H 22 113/62 96 01/20/22 11:10 94 H 99 01/20/22 11:05 107 H 98 01/20/22 11:01 95 H 93 01/20/22 11:00 105 H 96 01/20/22 10:55 97 H 97 01/20/22 10:50 112 H 95 01/20/22 10:48 85 94 01/20/22 10:45 94 H 97 01/20/22 10:40 124 H 96 01/20/22 10:35 115 H 98 01/20/22 10:33 100 H 93 01/20/22 10:30 113 H 97 01/20/22 10:25 97 H 97 01/20/22 10:26 94 H 94 01/20/22 10:20 80 99 01/20/22 10:15 128 H 98 01/20/22 10:13 99 H 93 01/20/22 10:10 102 H 96 01/20/22 10:05 99 H 96 01/20/22 10:00 105 H 99 01/20/22 09:55 113 H 98 01/20/22 09:50 90 97 01/20/22 09:26 106 H 99 01/20/22 09:21 96 H 99 01/20/22 09:16 113 H 100 01/20/22 09:11 90 98 01/20/22 09:06 106 H 98 01/20/22 09:01 127 H 100 Pain Intensity Lower Medial Abdomen: Pain Intensity: 0 Transfer of Care Handoff Completed per policy Notes Mental Status: alert / awake / arousable and participated in evaluation Nausea / Vomiting: adequately controlled Pain: adequately controlled Airway Patency, RR, SpO2: stable & adequate BP & HR: stable & adequate Hydration State: stable & adequate Neuraxial Anesthesia: was administered and sensory block is resolving Anesthetic Complications: no major complications apparent and Pt Satisfied with anesthetic care
[2022-01-21] MEDS: MEPERIDINE HCL 25 MG/ML CARP/VIAL IV PRN ×2 (02:27→04:09)
[2022-01-21] MEDS ORDERED: SENNA 8.6 MG TAB PO PRN (02:49)
[2022-01-21] MEDS ORDERED: BENZOCAINE 20% AER SPR 82.5 GM CAN EXT PRN (02:49)
[2022-01-21] MEDS ORDERED: DIPHTHERIA/TETANUS/PERTUSSIS 0.5 ML SYR/VIAL IM ONE (02:49)
[2022-01-21] MEDS ORDERED: MAGNESIUM HYDROXIDE SUSP 30 ML UDC PO PRN (02:49)
[2022-01-21] MEDS ORDERED: HYDROCORTISONE ACETATE 25 MG SUPP PR PRN (02:49)
[2022-01-21] MEDS: OXYTOCIN 30 UNITS in LACTATED RINGER'S 1,000 ML IV SCH ×2 (03:18→12:33)
[2022-01-21 04:56] LABS: Base Excess Cord Arterial Bld -5.6 mEq/L (-9-1.8); Base Excess Cord Venous Blood -2.4 mEq/L (-7.7-1.9); CO2 Cord Arterial Blood 66 mmHg (39.1-73.5); Cord Venous Blood HCO3 23 mmol/L (18.4-26.8); Cord Venous Blood PCO2 42 mmHg (30.4-57.2); Cord Venous Blood PO2 41 mmHg (14.1-43.3); Cord Venous Blood pH 7.35 (7.20-7.44); HCO3 Cord Arterial Blood 24 mmol/L (19.7-28.5); O2 Saturation Cord Venous Bld 80.4 % (<68); Oxygen Sat Cord Arterial Blood < 60.0 % (<60); PO2 Cord Arterial Blood 28 mmHg (4.1-31.7); pH Cord Arterial Blood 7.17 (7.1-7.38)
[2022-01-21] MEDS ORDERED: CITRIC ACID/SODIUM CITRATE 15 ML UDC PO SCH (06:00)
[2022-01-21] MEDS ORDERED: GENTAMICIN SULFATE 460 MG in DEXTROSE 5% 100 ML IV SCH (06:00)
[2022-01-21] MEDS ORDERED: CLINDAMYCIN/D5W 900 MG/50 ML BAG IV SCH (06:00)
[2022-01-21] MEDS: LACTATED RINGER'S 1,000 ML IV SCH ×2 (07:28→13:59)
[2022-01-21] MEDS: PRENATAL VITAMIN 1 TAB PO SCH (07:49)
[2022-01-21] MEDS: FERROUS SULFATE 325 MG TAB PO SCH (07:49)
[2022-01-21] MEDS: DOCUSATE SODIUM 100 MG CAP PO SCH ×2 (07:49→20:02)
[2022-01-21] MEDS: SIMETHICONE 80 MG CHEW PO SCH ×4 (07:49→20:02)
[2022-01-21] MEDS: KETOROLAC 30 MG/ML VIAL IV PRN ×2 (07:49→14:01)
[2022-01-21] MEDS ORDERED: diphenhydrAMINE Capsule 25 MG CAP PO PRN (19:25)
[2022-01-21] MEDS ORDERED: KETOROLAC 30 MG/ML VIAL IV PRN (19:25)
[2022-01-21] MEDS ORDERED: PROMETHAZINE HCL 25 MG in SODIUM CHLORIDE 0.9% 50 ML IV PRN (19:25)
[2022-01-21] MEDS ORDERED: MEPERIDINE HCL 50 MG/ML CARP IV PRN (19:25)
[2022-01-21] MEDS: oxyCODONE/ACETAMINOPHEN 5mg/325mg TAB PO PRN ×2 (20:02→23:09)
[2022-01-21] MEDS: IBUPROFEN 600 MG TAB PO PRN (20:02)
[2022-01-22] MEDS: IBUPROFEN 600 MG TAB PO PRN ×4 (05:51→20:36)
[2022-01-22] MEDS: oxyCODONE/ACETAMINOPHEN 5mg/325mg TAB PO PRN ×4 (05:51→20:35)
--- NOTE | 2022-01-22 06:20 | Obstetrical Progress Note ---
Date of Service <Chiquita Barrera - Last Filed: 01/22/22 07:06> January 22, 2022 Assessment & Plan <Chiquita Barrera - Last Filed: 01/22/22 07:06> (1) Status post section: Jacobo d/c yesterday and voiding, continue OOB and ambulation and progress diet as tolerated <Demario Frias MD - Last Filed: 01/22/22 08:09> (1) Status post section: Subjective <Chiquita BarreraDO - Last Filed: 01/22/22 07:06> Kiana is a 21 y/o female who is POD #1 following delivery at 40 weeks. She reports feeling well overall this morning. Moderate abdominal cramping & 1-2 rest worse when ambulating. Pain well managed on analgesics. Voiding. Tolerating meals overnight and able to ambulate some. Is passing gas, but no bowel movement. Has some persistent lochia with some improvement this morning. Currently bottle feeding. Review of Systems Denies fever, chills, sweats Denies shortness of breath, difficulty breathing, chest pain, palpitations, chest pressure. Denies breast pain. Denies dysuria. Denies headache or changes in vision. Physical Exam <Chiquita Barrera - Last Filed: 01/22/22 07:06> General: Alert, oriented. No acute distress. Cardiac: Regular rate and rhythm, no murmurs/rubs/gallops. Respiratory: Clear to auscultation bilaterally a/p, no wheezes/rales/rhonchi. No increased work of breathing. Symmetrical chest rise. No respiratory distress. Abdomen: Soft, nontender, nondistended. Bowel sounds present. Uterus: Uterine fundus firm, palpable 1 cm below umbilicus. Surgical scar clean and healing well. Lower Extremities: No lower extremity edema or swelling. No deep calf pain. Luke's negative bilaterally. Results & Data ([facility]) <Chiquita BarreraDO - Last Filed: 01/22/22 07:06> Vital Signs (Past 12 Hours) Vital Signs Temp Pulse Resp BP Pulse Ox O2 Del Method 01/21/22 23:00 36.8 C 85 16 119/77 100 Room Air 01/21/22 20:00 Room Air 01/21/22 20:00 37 C 105 H 18 120/78 97 Room Air 01/21/22 20:00 18 97 01/21/22 19:00 18 97 01/21/22 18:20 18 100 <Demario Frias MD - Last Filed: 01/22/22 08:09> Co-Signing Physician Notes Patient seen and evaluated with resident and agree with the above findings and plan. Patient doing well. Routine PP care Resident Activity Tracking <Chiquita Barrera DO - Last Filed: 01/22/22 07:06> Resident Involvement: Resident Care Provided Care Provided: OB Delivery (Post )
[2022-01-22] MEDS: LACTATED RINGER'S 1,000 ML IV SCH (07:12)
[2022-01-22 07:47] LABS: Hematocrit (blood only) 26.3 % (34.1-44.9); Hemoglobin 8.8 g/dl (12.0-16.0); Mean Corpuscular Hemoglobin 31.7 pg (25.0-34.0); Mean Corpuscular Hgb Conc 33.5 g/dL (32.0-36.0); Mean Corpuscular Volume 94.6 fL (80.0-100.0); Mean Platelet Volume 9.9 fL (9.4-12.3); Platelet Count 339 K/uL (130-400); RDW Coefficient of Variation 12.7 % (11.5-14.5); RDW Standard Deviation 44.2 fL (36.4-46.3); Red Blood Count 2.78 M/uL (3.93-5.22); White Blood Count 27.57 K/ul (4.8-10.8)
[2022-01-22] MEDS: PRENATAL VITAMIN 1 TAB PO SCH (07:55)
[2022-01-22] MEDS: FERROUS SULFATE 325 MG TAB PO SCH (07:55)
[2022-01-22] MEDS: DOCUSATE SODIUM 100 MG CAP PO SCH ×2 (07:55→20:36)
[2022-01-22] MEDS: SIMETHICONE 80 MG CHEW PO SCH ×4 (07:55→20:35)
[2022-01-22 08:13] LABS: Basophils # (auto) 0.09 K/uL (0-0.2); Basophils % (auto) 0.3 %; Eosinophils # (auto) 0.31 K/uL (0-0.50); Eosinophils % (auto) 1.1 %; Immature Granulocytes % (auto) 1.1 %; Lymphocytes # (auto) 1.84 K/uL (1.2-3.4); Lymphocytes % (auto) 6.7 %; Monocytes % (auto) 9.1 %; Neutrophils # (auto) 22.53 K/uL (1.4-6.5); Neutrophils % (auto) 81.7 %
[2022-01-23] MEDS: oxyCODONE/ACETAMINOPHEN 5mg/325mg TAB PO PRN ×3 (04:12→13:45)
[2022-01-23] MEDS: IBUPROFEN 600 MG TAB PO PRN ×3 (04:12→13:45)
--- NOTE | 2022-01-23 05:20 | Obstetrical Progress Note ---
Date of Service <Chiquita Barrera - Last Filed: 01/23/22 06:36> January 23, 2022 Assessment & Plan <Chiquita Barrera DO - Last Filed: 01/23/22 06:36> (1) Status post section: Jacobo has been d/c and is voiding, continue OOB and ambulation and progress diet as tolerated <Mia Davis MD, FACOG - Last Filed: 01/23/22 07:43> (1) Status post section: Subjective <Chiquita Barrera - Last Filed: 01/23/22 06:36> Kiana is a 21 y/o female who is POD #2 following delivery at 40 weeks. She reports feeling well overall this morning. Moderate abdominal cramping worse when ambulating. Pain well managed on analgesics. Voiding. Tolerating meals overnight and able to ambulate some. Is passing gas, but no bowel movement. Has some persistent lochia with some improvement this morning. Currently bottle feeding. Review of Systems Denies fever, chills, sweats Denies shortness of breath, difficulty breathing, chest pain, palpitations, chest pressure. Denies breast pain. Denies dysuria. Denies headache or changes in vision. Physical Exam <Chiquita Barrera - Last Filed: 01/23/22 06:36> General: Alert, oriented. No acute distress. Cardiac: Regular rate and rhythm, no murmurs/rubs/gallops. Respiratory: Clear to auscultation bilaterally a/p, no wheezes/rales/rhonchi. No increased work of breathing. Symmetrical chest rise. No respiratory distress. Abdomen: Soft, nontender, nondistended. Bowel sounds present. Uterus: Uterine fundus firm, palpable 2 cm below umbilicus. Surgical scar clean and healing well. Lower Extremities: No lower extremity edema or swelling. No deep calf pain. Grecia an's negative bilaterally. Results & Data ([facility]) <Chiquita Barrera - Last Filed: 01/23/22 06:36> Vital Signs (Past 12 Hours) Vital Signs Temp Pulse Resp BP Pulse Ox O2 Del Method 01/22/22 23:25 36.7 C 86 16 114/67 96 Room Air 01/22/22 20:00 36.8 C 89 18 122/82 98 Room Air <Mia Davis MD, FACOG - Last Filed: 01/23/22 07:43> Co-Signing Physician Notes Resident Physician Supervision Note: I interviewed and examined the patient. Discussed with Dr. Barrera and agree with findings and plan as documented in the note. Any exceptions or clarifications are listed here: [None] Documented By: Mia Davis MD, FACOG Resident Activity Tracking <Chiquita Barrera, - Last Filed: 01/23/22 06:36> Resident Involvement: Resident Care Provided Care Provided: OB Delivery (Post )
[2022-01-23 07:00] LABS: Hematocrit (blood only) 29.7 % (34.1-44.9); Hemoglobin 9.8 g/dl (12.0-16.0)
[2022-01-23] MEDS: SIMETHICONE 80 MG CHEW PO SCH ×2 (09:28→13:45)
[2022-01-23] MEDS: DOCUSATE SODIUM 100 MG CAP PO SCH (09:28)
[2022-01-23] MEDS: FERROUS SULFATE 325 MG TAB PO SCH (09:28)
[2022-01-23] MEDS: PRENATAL VITAMIN 1 TAB PO SCH (09:28)
--- NOTE | 2022-01-25 08:40 | Discharge Summary ---
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 She underwent a section and was ultimately discharged home on POD#2 with usual post op instructions and pain medication. Coding Level of Care Code None Diagnoses Status post section Z98.891
== END 2022-01-23 14:20 | disposition home or self-care (01) | DRG 787 ==
LOC: OPB 08:18 → 4S1 08:26 → 4E2 01-21 04:41